=== PATIENT | female | born 1960 | race Two or more races ===

== ENCOUNTER 2022-09-13 10:22 | Emergency (ER) | payer MEDICAID ==
[~2022-09-13] VITALS: Ht 144.8 cm; Wt 55.5 kg
[2022-09-13 11:14] LABS: Monocytes # (auto) 0.5 10 ^3/uL (0-1.3); Nucleated Red Blood Cells % 0.1 %; White Blood Cell 7.4 10^3/uL (4.4-10.8)
[2022-09-13 11:19] LABS: Basophils # (auto) 0 10 ^3/uL (0-0.2); Basophils % (auto) 0.5 % (0.0-2.0); Eosinophils # (auto) 0.1 10 ^3/uL (0-0.8); Eosinophils % (auto) 1.5 % (0.0-7.0); Hematocrit 34.9 % (36.0-46.0); Hemoglobin 11.7 g/dL (12.2-16.2); Lymphocytes # (auto) 3.1 10 ^3/uL (0.4-5.4); Lymphocytes % (auto) 41.9 % (10.0-50.0); Mean Corpuscular Hemoglobin 26.4 pg (28.0-32.0); Mean Corpuscular Hgb Conc. 33.6 g/dL (32.0-36.0); Mean Corpuscular Volume 78.6 fL (80.0-100.0); Monocytes % (auto) 6.7 % (0.0-12.0); Neutrophils # (auto) 3.7 10 ^3/uL (1.6-8.6); Neutrophils % (auto) 49.4 % (37.0-80.0); Red Blood Cells 4.44 10^6/uL (4.0-5.20); Red Cell Distribution Width 15.6 % (11.8-14.3)
[2022-09-13 11:31] LABS: Albumin 3.8 g/dL (3.4-5.0); Calcium 9.1 mg/dL (8.5-10.1); Potassium 4.1 mmol/L (3.5-5.1)
[2022-09-13 11:34] LABS: BUN/Creatinine Ratio 17.5; Bilirubin, Total 0.4 mg/dL (0.2-1.0); Total Protein 7.6 g/dL (6.4-8.2)
[2022-09-13 12:14] LABS: Urine Bacteria NONE SEEN /hpf (None Seen); Urine Blood Negative /uL (Negative); Urine Specific Gravity 1.015 (1.001-1.035); Urine WBC 1 /hpf (0 - 5)
[2022-09-13 14:54] VITALS: BP 143/71
[2022-09-13] MEDS ORDERED: CIPR500T4 PO (16:34)
[2022-09-13] MEDS ORDERED: METR500T14 PO (16:34)
[2022-09-13] MEDS ORDERED: ONDA-144 PO (16:34)
== END 2022-09-13 16:47 | disposition home or self-care (01) ==
LOC: ER 10:22
DX: K57.92 Diverticulitis of intestine, part unspecified, without perforation or abscess without bleeding (principal); R94.31 Abnormal electrocardiogram [ECG] [EKG]; E11.9 Type 2 diabetes mellitus without complications; Z20.822 Contact with and (suspected) exposure to COVID-19
CPT/HCPCS: 36415; 74176; 80053; 81001; 82962; 83690; 85025; 87426; 93005

== ENCOUNTER → 2023-06-12 | Emergency (ER) | payer OTHER, MEDICAID ==
[~2023-06-12] VITALS: Ht 144.8 cm; Wt 54.4 kg
[~2023-06-12] MED LIST: CIPR500T4 PO; METR-344 PO; ONDA-144 PO
[2023-06-12 19:22] VITALS: BP 145/68; PULSE 82; RESP 18; TEMP 98.3; O2SAT 97
== END | disposition left against medical advice (07) ==
LOC: ER 14:56
DX: R11.2 Nausea with vomiting, unspecified (principal); R51.9 Headache, unspecified; Z53.21 Procedure and treatment not carried out due to patient leaving prior to being seen by health care provider

== ENCOUNTER → 2023-07-06 | Outpatient (CLI) | payer OTHER, MEDICAID ==
[2023-07-06 12:06] LABS: Basophils # (auto) 0.1 10 ^3/uL (0-0.2); Monocytes # (auto) 0.4 10 ^3/uL (0-1.3); Red Cell Distribution Width 15.3 % (11.8-14.3)
[2023-07-06 12:08] LABS: Basophils % (auto) 0.8 % (0.0-2.0); Eosinophils # (auto) 0.1 10 ^3/uL (0-0.8); Eosinophils % (auto) 1.8 % (0.0-7.0); Lymphocytes # (auto) 3.5 10 ^3/uL (0.4-5.4); Lymphocytes % (auto) 48.9 % (10.0-50.0); Mean Corpuscular Hemoglobin 26.1 pg (28.0-32.0); Mean Corpuscular Hgb Conc. 33.2 g/dL (32.0-36.0); Mean Corpuscular Volume 78.4 fL (80.0-100.0); Monocytes % (auto) 5.7 % (0.0-12.0); Neutrophils # (auto) 3.1 10 ^3/uL (1.6-8.6); Neutrophils % (auto) 42.8 % (37.0-80.0); Red Blood Cells 4.21 10^6/uL (4.0-5.20); White Blood Cell 7.2 10^3/uL (4.4-10.8)
[2023-07-06 12:57] LABS: Alanine Aminotransferase 14 U/L (7-40); Albumin 4.6 g/dL (3.2-4.8); Alkaline Phosphatase 102 U/L (46-116); Anion Gap 8 (5-15); Aspartate Aminotransferase 18 U/L (13-40); BUN/Creatinine Ratio 21.8 (10.0-20.0); Bilirubin, Total 0.5 mg/dL (0.2-1.0); Blood Urea Nitrogen 31 mg/dL (9-23); Calcium 9.8 mg/dL (8.5-10.1); Carbon Dioxide 30 mmol/L (20-30); Chloride 99 mmol/L (98-107); Glucose 192 mg/dL (74-106); Potassium 3.8 mmol/L (3.5-5.1); Sodium 137 mmol/L (136-145); Total Protein 7.4 g/dL (5.7-8.2)
[2023-07-06 12:58] LABS: % Iron Saturation 23.5 % (15-50)
== END | disposition home or self-care (01) ==
LOC: LAB 11:52
PROVIDERS: ATTEND Nurse Practitioner Family
DX: D50.9 Iron deficiency anemia, unspecified (principal)
CPT/HCPCS: 36415; 80053; 82270; 83540; 83550; 84439; 84443; 85025

== ENCOUNTER 2023-08-10 08:52 | Emergency (ER) | payer OTHER, MEDICAID ==
[~2023-08-10] VITALS: Ht 165.1 cm; Wt 58.1 kg
[2023-08-10 09:17] LABS: Chloride 104 mmol/L (98-107); Potassium 3.8 mmol/L (3.5-5.1); Sodium 137 mmol/L (136-145)
[2023-08-10 09:18] LABS: Anion Gap 9 (5-15); Calcium 10.2 mg/dL (8.5-10.1); Carbon Dioxide 24 mmol/L (20-30)
[2023-08-10 09:21] LABS: Eosinophils # (auto) 0.2 10 ^3/uL (0-0.8); Monocytes # (auto) 0.4 10 ^3/uL (0-1.3); White Blood Cell 8.3 10^3/uL (4.4-10.8)
[2023-08-10 09:22] LABS: Basophils # (auto) 0 10 ^3/uL (0-0.2); Basophils % (auto) 0.4 % (0.0-2.0); Eosinophils % (auto) 2.4 % (0.0-7.0); Hematocrit 36.7 % (36.0-46.0); Hemoglobin 11.7 g/dL (12.2-16.2); Lymphocytes # (auto) 4.1 10 ^3/uL (0.4-5.4); Mean Corpuscular Hemoglobin 25.6 pg (28.0-32.0); Mean Corpuscular Volume 79.9 fL (80.0-100.0); Monocytes % (auto) 4.3 % (0.0-12.0); Neutrophils # (auto) 3.5 10 ^3/uL (1.6-8.6); Neutrophils % (auto) 42.9 % (37.0-80.0); Nucleated Red Blood Cells % 0.1 %; Red Blood Cells 4.59 10^6/uL (4.0-5.20); Red Cell Distribution Width 15.2 % (11.8-14.3)
[2023-08-10 09:23] LABS: BUN/Creatinine Ratio 21.1 (10.0-20.0); Blood Urea Nitrogen 24 mg/dL (9-23); Glucose 149 mg/dL (74-106)
[2023-08-10 09:30] VITALS: PULSE 84; RESP 17; O2SAT 98
[2023-08-10 09:34] VITALS: TEMP 98
[2023-08-10] MEDS ORDERED: ACETAMINOPHEN 325 MG TAB PO ONE (10:15)
[2023-08-10 11:10] VITALS: BP 159/6; PULSE 77; RESP 18; O2SAT 95
== END 2023-08-10 11:33 | disposition home or self-care (01) ==
LOC: ER 08:52 → EDBD 08:52 → ER 11:33
DX: S20.219A Contusion of unspecified front wall of thorax, initial encounter (principal); S80.02XA Contusion of left knee, initial encounter; S80.01XA Contusion of right knee, initial encounter; S09.90XA Unspecified injury of head, initial encounter; I10 Essential (primary) hypertension; E11.9 Type 2 diabetes mellitus without complications; Z90.710 Acquired absence of both cervix and uterus; Z79.2 Long term (current) use of antibiotics; Z79.899 Other long term (current) drug therapy; V43.52XA Car driver injured in collision with other type car in traffic accident, initial encounter; Y93.89 Activity, other specified; Y92.410 Unspecified street and highway as the place of occurrence of the external cause; Y99.8 Other external cause status
CPT/HCPCS: 36415; 70450; 71045; 73562; 73610; 80048; 84484; 85025; 93005

== ENCOUNTER 2024-02-08 16:59 | Inpatient (IN) | payer OTHER, MEDICAID ==
[~2024-02-08] VITALS: Ht 144.8 cm; Wt 51.4 kg
[2024-02-08 17:19] LABS: Red Blood Cells 4.05 10^6/uL (4.0-5.20)
[2024-02-08 17:21] LABS: Hemoglobin 10.2 g/dL (12.2-16.2); Mean Corpuscular Hemoglobin 25.3 pg (28.0-32.0); Mean Corpuscular Volume 78.8 fL (80.0-100.0); Red Cell Distribution Width 17.3 % (11.8-14.3); White Blood Cell 8.3 10^3/uL (4.4-10.8)
[2024-02-08 17:24] LABS: Band Neutrophils % (manual) 0; Basophils % (manual) 0 (0.0-2.0); Metamyelocytes % 0
[2024-02-08 17:25] LABS: Blast Cells 0; Myelocytes % 0; Promyelocytes % 0; Reactive Lymphocytes 0
[2024-02-08 17:35] LABS: INR 0.96 (0.9-1.15); Partial Thromboplastin Time 24.6 SEC (24.5-34.5); Prothrombin Time 10.2 sec (9.3-11.8)
[2024-02-08 17:38] LABS: Alanine Aminotransferase 25 U/L (7-40); Albumin 4.5 g/dL (3.2-4.8); Alkaline Phosphatase 104 U/L (46-116); Anion Gap 8 (5-15); Aspartate Aminotransferase 21 U/L (13-40); BUN/Creatinine Ratio 16.7 (10.0-20.0); Blood Urea Nitrogen 24 mg/dL (9-23); Calcium 9.7 mg/dL (8.5-10.1); Carbon Dioxide 28 mmol/L (20-30); Chloride 102 mmol/L (98-107); Glucose 180 mg/dL (74-106); Magnesium 1.4 mg/dL (1.6-2.6); Potassium 3.6 mmol/L (3.5-5.1); Sodium 138 mmol/L (136-145)
[2024-02-08 17:39] LABS: Bilirubin, Total 0.4 mg/dL (0.2-1.0); Total Protein 7.5 g/dL (5.7-8.2)
[2024-02-08 19:19] LABS: Eosinophils % (manual) 2 (0-7); Lymphocytes % (manual) 57 (10.0-50.0); Monocytes % (manual) 8 (0-12); Platelet Estimate Adequate
[2024-02-08] MEDS ORDERED: DEXTROSE (50%) 50ML SYRG IV PRN (20:45)
[2024-02-08] MEDS ORDERED: HYDROcodone-ACET 5/325MG TAB PO PRN (20:45)
[2024-02-08] MEDS ORDERED: ONDANSETRON HCL 4 MG/2 ML VIAL IV PRN (20:45)
[2024-02-08] MEDS ORDERED: ACETAMINOPHEN 325 MG TAB PO PRN (20:45)
[2024-02-08] MEDS ORDERED: hydrALAZINE HCL 20 MG/ML VL IV PRN (20:45)
[2024-02-08] MEDS ORDERED: DOCUSATE SOD 100 MG CAP PO PRN (20:45)
[2024-02-08] MEDS: ASPirin 325 MG TAB PO ONE (20:51)
[2024-02-08] MEDS: NITROGLYCERIN 0.4 MG SL TAB SL ONE (20:51)
[2024-02-08] MEDS ORDERED: MORPHINE SULFATE INJ 2 MG/ml SYRG IV PRN (21:15)
[2024-02-08] MEDS ORDERED: NITROGLYCERIN 0.4 MG SL TAB SL PRN (21:15)
[2024-02-08 23:00] VITALS: PULSE 70; RESP 12; O2SAT 100
[2024-02-08] MEDS: InsuLIN REG 1unit/0.01ml Soln (100units/ml) SC SCH (23:04)
[2024-02-08] MEDS: ACCU-CHEK COMFORT CURVE STRIP VI SCH (23:04)
[2024-02-08] MEDS: MAGNESIUM SULFATE 1GM/100ML 100 ML IV ONE (23:28)
[2024-02-08] MEDS: SODIUM CHLOR 0.9% PF (SALINE LOCK) 10ML VIAL/SYR IV SCH (23:28)
[2024-02-08] MEDS: ATORVASTATIN 20 MG TAB PO SCH (23:29)
[2024-02-09] VITALS (9 sets, daily range): BP systolic 129–148; BP diastolic 56–77; PULSE 64–84; RESP 14–18; TEMP 36.1; O2SAT 95–99
[2024-02-09 03:47] LABS: White Blood Cell 7.6 10^3/uL (4.4-10.8)
[2024-02-09 03:49] LABS: Hematocrit 31.6 % (36.0-46.0); Hemoglobin 10.3 g/dL (12.2-16.2); Mean Corpuscular Hemoglobin 25.8 pg (28.0-32.0); Mean Corpuscular Hgb Conc. 32.7 g/dL (32.0-36.0); Mean Corpuscular Volume 78.9 fL (80.0-100.0); Red Blood Cells 4.01 10^6/uL (4.0-5.20); Red Cell Distribution Width 17.2 % (11.8-14.3)
[2024-02-09 04:00] LABS: Alanine Aminotransferase 20 U/L (7-40); Albumin 4.2 g/dL (3.2-4.8); Alkaline Phosphatase 95 U/L (46-116); Anion Gap 6 (5-15); Aspartate Aminotransferase 19 U/L (13-40); BUN/Creatinine Ratio 17.7 (10.0-20.0); Bilirubin, Total 0.5 mg/dL (0.2-1.0); Blood Urea Nitrogen 22 mg/dL (9-23); Calcium 9.7 mg/dL (8.5-10.1); Carbon Dioxide 31 mmol/L (20-30); Chloride 103 mmol/L (98-107); Glucose 122 mg/dL (74-106); Potassium 3.3 mmol/L (3.5-5.1); Sodium 140 mmol/L (136-145)
[2024-02-09 04:01] LABS: Total Protein 7.1 g/dL (5.7-8.2)
[2024-02-09 04:24] LABS: Basophils % (manual) 0 (0.0-2.0); Blast Cells 0; Eosinophils % (manual) 0 (0-7); Metamyelocytes % 0; Myelocytes % 0; Promyelocytes % 0; Reactive Lymphocytes 0
[2024-02-09] MEDS: InsuLIN REG 1unit/0.01ml Soln (100units/ml) SC SCH (07:00)
[2024-02-09 08:20] LABS: Band Neutrophils % (manual) 3; Lymphocytes % (manual) 57 (10.0-50.0); Monocytes % (manual) 4 (0-12)
[2024-02-09 08:21] LABS: Platelet Estimate Adequate
[2024-02-09] MEDS: ASPirin 81 mg TAB PO SCH (10:00)
[2024-02-09 11:56] LABS: Magnesium 1.9 mg/dL (1.6-2.6)
[2024-02-09 11:58] LABS: Phosphorus 3.5 mg/dL (2.4-5.1)
[2024-02-09] MEDS: POTASSIUM CHL 20 Meq TABLET PO ONE (12:09)
[2024-02-09] MEDS: MAGNESIUM SULFATE 1GM/100ML 100 ML IV ONE (12:13)
[2024-02-09 12:17] LABS: Triglycerides 155 mg/dL (< 150)
[2024-02-09] MEDS: METOPROLOL SUCCINATE XL 50 MG TAB PO ONE (12:17)
[2024-02-09 12:18] LABS: LDL Cholesterol 147 mg/dL (< 100)
[2024-02-09 12:19] LABS: Cholesterol 202 mg/dL (< 200); HDL Cholesterol 43 mg/dL (40-59)
[2024-02-09] MEDS: CLOPIDOGREL BISULFATE 75 MG TAB PO ONE (13:33)
[2024-02-09] MEDS: ANGIOMAX 250 MG VIAL IV ONE (15:04)
[2024-02-09] MEDS: SODIUM CHL 0.9% 0 ML ONE (15:05)
[2024-02-09] MEDS: fentaNYL CITRATE 100 MCG/2 ML VL ONE (15:05)
[2024-02-09] MEDS: VERAPAMIL 2.5MG/ML INJ 2ML VIAL IV ONE (15:05)
[2024-02-09] MEDS: LIDOCAINE 2%HCL (LOCAL ANESTH.) INJ 20ML MDV ONE (15:05)
[2024-02-09] MEDS: MIDAZOLAM HCL 2MG/2ML 2ml VIAL (1mg/ml) ONE (15:05)
[2024-02-09] MEDS: HEPARIN SODIUM (PORCINE) 5000 UNITS/ML 1ML VIAL ONE (15:05)
[2024-02-09] MEDS: IODIXANOL 320MG/ML 100ML BTL IV ONE (15:06)
[2024-02-09] MEDS ORDERED: AMLO1TAB22 PO (17:24)
[2024-02-09] MEDS ORDERED: GLIP5TAB21 PO (17:24)
[2024-02-09] MEDS ORDERED: POM PO (17:24)
[2024-02-09] MEDS ORDERED: LORA-1120 PO (17:24)
[2024-02-09] MEDS ORDERED: METF-370 PO (17:24)
[2024-02-09] MEDS ORDERED: ATOR20TA50 PO (19:24)
[2024-02-09] MEDS ORDERED: ASPI-498 OR (19:25)
[2024-02-09] MEDS ORDERED: LISI-275 PO (19:28)
[2024-02-09] MEDS ORDERED: METO25TA93 PO (19:28)
[2024-02-09] MEDS ORDERED: ATORVASTATIN 20 MG TAB PO SCH (22:00)
[2024-02-10] MEDS ORDERED: EMPAGLIFLOZIN 10 MG TAB PO SCH (10:00)
[2024-02-10] MEDS ORDERED: METOPROLOL SUCCINATE XL 50 MG TAB PO SCH (10:00)
[2024-02-10] MEDS ORDERED: LISINOPRIL 5 MG TAB PO SCH (10:00)
[2024-02-10] MEDS ORDERED: SPIRONOLACTONE 25 MG TAB PO SCH (10:00)
== END 2024-02-09 20:25 | disposition home or self-care (01) | DRG 286 ==
LOC: ER 16:59 → TELE 21:08 → TELE-WESTW 02-09 16:53
PROVIDERS: ADMIT Nurse Practitioner Family; ATTEND Internal Medicine
PROC: 4A023N7 Measurement of Cardiac Sampling and Pressure, Left Heart, Percutaneous Approach (ICD-10-PCS; principal; 2024-02-09)
PROC: B211YZZ Fluoroscopy of Multiple Coronary Arteries using Other Contrast (ICD-10-PCS; 2024-02-09)
DX: I11.0 Hypertensive heart disease with heart failure (principal); I50.21 Acute systolic (congestive) heart failure; N17.9 Acute kidney failure, unspecified; I47.20 Ventricular tachycardia, unspecified; I42.8 Other cardiomyopathies; E83.42 Hypomagnesemia; E11.65 Type 2 diabetes mellitus with hyperglycemia; I08.0 Rheumatic disorders of both mitral and aortic valves; I49.3 Ventricular premature depolarization; E78.5 Hyperlipidemia, unspecified; Z79.84 Long term (current) use of oral hypoglycemic drugs; Z90.710 Acquired absence of both cervix and uterus
CPT/HCPCS: 36415; 71045; 80053; 80061; 82962; 83036; 83735; 84100; 84443; 84484; 85007; 85027; 85379; 85610; 85730; 93306; G0378; J1815; J2250; Q9967

== ENCOUNTER → 2024-02-13 | Outpatient (CLI) | payer OTHER, MEDICAID ==
[~2024-02-13] MED LIST changes: +AMLO1TAB22 PO; +ASPI-498 OR; +ATOR20TA50 PO; -CIPR500T4 PO; +GLIP5TAB21 PO; +LISI-275 PO; +METF-370 PO; +METO25TA93 PO; -METR-344 PO
[2024-02-13 10:32] LABS: Basophils # (auto) 0 10 ^3/uL (0-0.2); Basophils % (auto) 0.6 % (0.0-2.0); Eosinophils # (auto) 0.1 10 ^3/uL (0-0.8); Hemoglobin 11.1 g/dL (12.2-16.2); Monocytes # (auto) 0.3 10 ^3/uL (0-1.3); Neutrophils # (auto) 3.8 10 ^3/uL (1.6-8.6)
[2024-02-13 10:34] LABS: Eosinophils % (auto) 1.7 % (0.0-7.0); Hematocrit 33.2 % (36.0-46.0); Lymphocytes # (auto) 3.1 10 ^3/uL (0.4-5.4); Lymphocytes % (auto) 41.9 % (10.0-50.0); Mean Corpuscular Hemoglobin 26.4 pg (28.0-32.0); Mean Corpuscular Hgb Conc. 33.5 g/dL (32.0-36.0); Mean Corpuscular Volume 78.7 fL (80.0-100.0); Monocytes % (auto) 4.4 % (0.0-12.0); Neutrophils % (auto) 51.4 % (37.0-80.0); Red Blood Cells 4.22 10^6/uL (4.0-5.20); White Blood Cell 7.4 10^3/uL (4.4-10.8)
[2024-02-13 10:39] LABS: Alanine Aminotransferase 20 U/L (7-40); Albumin 4.5 g/dL (3.2-4.8); Alkaline Phosphatase 100 U/L (46-116); Anion Gap 8 (5-15); Aspartate Aminotransferase 20 U/L (13-40); BUN/Creatinine Ratio 19.7 (10.0-20.0); Bilirubin, Total 0.5 mg/dL (0.2-1.0); Blood Urea Nitrogen 29 mg/dL (9-23); Calcium 10.5 mg/dL (8.5-10.1); Carbon Dioxide 28 mmol/L (20-30); Chloride 103 mmol/L (98-107); Glucose 143 mg/dL (74-106); Potassium 4.1 mmol/L (3.5-5.1); Sodium 139 mmol/L (136-145); Total Protein 7.5 g/dL (5.7-8.2)
[2024-02-13 11:37] LABS: Ferritin 20.1 ng/mL (10-291)
[2024-02-13 11:52] LABS: Folate (Folic Acid) 34.88 ng/mL (>5.38)
== END | disposition home or self-care (01) ==
LOC: LAB 09:54
PROVIDERS: ATTEND Internal Medicine
DX: D64.9 Anemia, unspecified (principal); C7A.019 Malignant carcinoid tumor of the small intestine, unspecified portion
CPT/HCPCS: 36415; 80053; 82607; 82728; 82746; 83540; 85025

== ENCOUNTER 2025-02-04 10:01 | Outpatient (CLI) | payer OTHER, MEDICAID ==
[2025-02-04 10:40] LABS: Basophils # (auto) 0 10 ^3/uL (0-0.2); Basophils % (auto) 0.5 % (0.0-2.0); Eosinophils # (auto) 0.1 10 ^3/uL (0-0.8); Eosinophils % (auto) 1.4 % (0.0-7.0); Hematocrit 35.9 % (36.0-46.0); Hemoglobin 11.9 g/dL (12.2-16.2); Lymphocytes # (auto) 2.4 10 ^3/uL (0.4-5.4); Lymphocytes % (auto) 24.6 % (10.0-50.0); Mean Corpuscular Hgb Conc. 33.1 g/dL (32.0-36.0); Mean Corpuscular Volume 78.6 fL (80.0-100.0); Monocytes # (auto) 0.6 10 ^3/uL (0-1.3); Monocytes % (auto) 6.1 % (0.0-12.0); Neutrophils # (auto) 6.5 10 ^3/uL (1.6-8.6); Neutrophils % (auto) 67.4 % (37.0-80.0); Platelet Count (auto) 248 10^3/uL (140-450); Red Blood Cells 4.57 10^6/uL (4.0-5.20); Red Cell Distribution Width 15.6 % (11.8-14.3); White Blood Cell 9.7 10^3/uL (4.4-10.8)
[2025-02-04 11:00] LABS: Alanine Aminotransferase 14 U/L (7-40); Alkaline Phosphatase 101 U/L (46-116); Anion Gap 11 (5-15); Aspartate Aminotransferase 18 U/L (13-40); BUN/Creatinine Ratio 17.3 (10.0-20.0); Calcium 10.2 mg/dL (8.7-10.4); Carbon Dioxide 23 mmol/L (20-31); Chloride 106 mmol/L (98-107); Potassium 4.4 mmol/L (3.5-5.1); Sodium 140 mmol/L (136-145); Total Protein 7.6 g/dL (5.7-8.2)
[2025-02-04 11:01] LABS: Albumin 4.8 g/dL (3.2-4.8); Bilirubin, Total 0.7 mg/dL (0.2-1.0); Blood Urea Nitrogen 28 mg/dL (9-23); Glucose 137 mg/dL (74-106)
== END 2025-02-04 17:00 | disposition home or self-care (01) ==
LOC: LAB 10:01
PROVIDERS: ATTEND Internal Medicine
DX: C7A.019 Malignant carcinoid tumor of the small intestine, unspecified portion (principal); D64.9 Anemia, unspecified
CPT/HCPCS: 36415; 80053; 83615; 85025

== ENCOUNTER → 2025-04-10 | Outpatient (CLI) | payer OTHER, MEDICAID ==
[2025-04-10 12:58] LABS: Hematocrit 32.4 % (36.0-46.0); Hemoglobin 10.6 g/dL (12.2-16.2); Mean Corpuscular Hemoglobin 25.8 pg (28.0-32.0); Mean Corpuscular Volume 78.6 fL (80.0-100.0); Nucleated Red Blood Cells % 0.0 %
[2025-04-10 13:35] LABS: Alanine Aminotransferase 13 U/L (7-40); Albumin 4.5 g/dL (3.2-4.8); Alkaline Phosphatase 95 U/L (46-116); Anion Gap 11 (5-15); BUN/Creatinine Ratio 23.0 (10.0-20.0); Calcium 9.3 mg/dL (8.7-10.4); Carbon Dioxide 21 mmol/L (20-31); Glucose 100 mg/dL (74-106); Potassium 4.2 mmol/L (3.5-5.1); Sodium 139 mmol/L (136-145); Total Protein 7.1 g/dL (5.7-8.2)
[2025-04-10 13:41] LABS: Bilirubin, Total 0.3 mg/dL (0.2-1.0); Blood Urea Nitrogen 32 mg/dL (9-23); Chloride 107 mmol/L (98-107)
== END | disposition home or self-care (01) ==
LOC: LAB 12:37
PROVIDERS: ATTEND Internal Medicine
DX: C7A.019 Malignant carcinoid tumor of the small intestine, unspecified portion (principal); D64.9 Anemia, unspecified
CPT/HCPCS: 36415; 80053; 83615; 85025

== ENCOUNTER 2025-05-08 09:17 | Outpatient (CLI) | payer OTHER, MEDICAID ==
[2025-05-08 09:51] LABS: Hemoglobin 11.0 g/dL (12.2-16.2); Nucleated Red Blood Cells % 0.1 %
[2025-05-08 09:53] LABS: Hematocrit 34.2 % (36.0-46.0); Mean Corpuscular Hemoglobin 25.5 pg (28.0-32.0); Mean Corpuscular Volume 79.3 fL (80.0-100.0)
[2025-05-08 10:09] LABS: Wright Stain Ready for Review
[2025-05-08 10:19] LABS: Alanine Aminotransferase 12 U/L (7-40); Albumin 4.3 g/dL (3.2-4.8); Alkaline Phosphatase 90 U/L (46-116); Anion Gap 11 (5-15); BUN/Creatinine Ratio 14.6 (10.0-20.0); Bilirubin, Total 0.4 mg/dL (0.2-1.0); Blood Urea Nitrogen 21 mg/dL (9-23); Calcium 9.4 mg/dL (8.7-10.4); Carbon Dioxide 23 mmol/L (20-31); Chloride 109 mmol/L (98-107); Glucose 115 mg/dL (74-106); Potassium 4.2 mmol/L (3.5-5.1); Sodium 143 mmol/L (136-145); Total Protein 7.4 g/dL (5.7-8.2)
[2025-05-08 13:13] LABS: Iron 47.0 ug/dL (50-170)
[2025-05-08 13:14] LABS: Total Iron Binding Capacity 380.0 ug/dL (250-425)
[2025-05-08 13:22] LABS: Ferritin 8.3 ng/mL (10-291)
== END 2025-05-08 17:00 | disposition home or self-care (01) ==
LOC: LAB 09:17
PROVIDERS: ATTEND Internal Medicine
DX: C7A.019 Malignant carcinoid tumor of the small intestine, unspecified portion (principal); D64.9 Anemia, unspecified; R91.1 Solitary pulmonary nodule
CPT/HCPCS: 36415; 80053; 82306; 82607; 82728; 82746; 83540; 83550; 84155; 84165; 85025; 85045

== ENCOUNTER → 2025-05-09 | Outpatient (CLI) | payer OTHER, MEDICAID | END | disposition home or self-care (01) | LOC: LAB 11:33 | PROVIDERS: ATTEND Internal Medicine | DX: C7A.019 Malignant carcinoid tumor of the small intestine, unspecified portion (principal); D64.9 Anemia, unspecified; R91.1 Solitary pulmonary nodule | CPT/HCPCS: 82270 ==

== ENCOUNTER 2025-05-19 09:39 | Outpatient (CLI) | payer OTHER ==
[2025-05-19 10:04] LABS: Hemoglobin 11.4 g/dL (12.2-16.2); Nucleated Red Blood Cells % 0.0 %
[2025-05-19 10:06] LABS: Hematocrit 34.5 % (36.0-46.0); Mean Corpuscular Hemoglobin 26.0 pg (28.0-32.0); Mean Corpuscular Volume 78.2 fL (80.0-100.0)
[2025-05-19 10:30] LABS: Alanine Aminotransferase 15 U/L (7-40); Albumin 4.4 g/dL (3.2-4.8); Alkaline Phosphatase 93 U/L (46-116); Anion Gap 12 (5-15); BUN/Creatinine Ratio 14.9 (10.0-20.0); Calcium 9.6 mg/dL (8.7-10.4); Carbon Dioxide 26 mmol/L (20-31); Chloride 102 mmol/L (98-107); Microalb/Creat Ratio, Urine 19.0; Potassium 4.5 mmol/L (3.5-5.1); Sodium 140 mmol/L (136-145); Total Protein 7.4 g/dL (5.7-8.2)
[2025-05-19 10:31] LABS: Bilirubin, Total 0.6 mg/dL (0.2-1.0); Cholesterol 166 mg/dL (< 200); HDL Cholesterol 48 mg/dL (40-59)
[2025-05-19 11:10] LABS: Blood Urea Nitrogen 26 mg/dL (9-23); Glucose 137 mg/dL (74-106); Triglycerides 238 mg/dL (< 150)
== END 2025-05-19 17:00 | disposition home or self-care (01) ==
LOC: LAB 09:39
PROVIDERS: ATTEND Nurse Practitioner Family
DX: I13.0 Hypertensive heart and chronic kidney disease with heart failure and stage 1 through stage 4 chronic kidney disease, or unspecified chronic kidney disease (principal); E11.22 Type 2 diabetes mellitus with diabetic chronic kidney disease; N18.32 Chronic kidney disease, stage 3b; I50.9 Heart failure, unspecified; E11.65 Type 2 diabetes mellitus with hyperglycemia; Z00.01 Encounter for general adult medical examination with abnormal findings
CPT/HCPCS: 36415; 80053; 80061; 82043; 82570; 83036; 84443; 85025

== ENCOUNTER 2025-07-02 10:40 | Outpatient (CLI) | payer OTHER, MEDICAID ==
[2025-07-02 12:21] LABS: Chloride 105 mmol/L (98-107); Potassium 4.5 mmol/L (3.5-5.1); Sodium 142 mmol/L (136-145)
[2025-07-02 12:22] LABS: Anion Gap 9 (5-15); Calcium 9.6 mg/dL (8.7-10.4); Carbon Dioxide 28 mmol/L (20-31)
[2025-07-02 12:27] LABS: BUN/Creatinine Ratio 12.0 (10.0-20.0); Blood Urea Nitrogen 18 mg/dL (9-23)
[2025-07-02 12:32] LABS: Glucose 112 mg/dL (74-106)
== END 2025-07-02 17:00 | disposition home or self-care (01) ==
LOC: LAB 10:40
PROVIDERS: ATTEND Nurse Practitioner Family
DX: N28.1 Cyst of kidney, acquired (principal)
CPT/HCPCS: 36415; 80048

== ENCOUNTER 2025-07-09 09:27 | Outpatient (CLI) | payer OTHER, MEDICAID ==
[2025-07-09 10:19] LABS: Mean Corpuscular Hemoglobin 25.9 pg (28.0-32.0)
[2025-07-09 10:21] LABS: Hematocrit 34.7 % (36.0-46.0); Hemoglobin 11.2 g/dL (12.2-16.2); Mean Corpuscular Volume 80.2 fL (80.0-100.0); Nucleated Red Blood Cells % 0.2 %
[2025-07-09 10:44] LABS: Alanine Aminotransferase 17 U/L (7-40); Albumin 4.5 g/dL (3.2-4.8); Alkaline Phosphatase 107 U/L (46-116); Anion Gap 12 (5-15); BUN/Creatinine Ratio 11.8 (10.0-20.0); Blood Urea Nitrogen 19 mg/dL (9-23); Calcium 9.9 mg/dL (8.7-10.4); Carbon Dioxide 25 mmol/L (20-31); Chloride 106 mmol/L (98-107); Potassium 4.2 mmol/L (3.5-5.1); Sodium 143 mmol/L (136-145); Total Protein 7.8 g/dL (5.7-8.2)
[2025-07-09 10:45] LABS: Bilirubin, Total 0.4 mg/dL (0.2-1.0)
[2025-07-09 10:46] LABS: Total Iron Binding Capacity 330.0 ug/dL (250-425)
[2025-07-09 10:48] LABS: Glucose 156 mg/dL (74-106); Iron 192.0 ug/dL (50-170)
== END 2025-07-09 17:00 | disposition home or self-care (01) ==
LOC: LAB 09:27
PROVIDERS: ATTEND Internal Medicine
DX: C7A.019 Malignant carcinoid tumor of the small intestine, unspecified portion (principal); D64.9 Anemia, unspecified; R91.1 Solitary pulmonary nodule
CPT/HCPCS: 36415; 80053; 82728; 83540; 83550; 85025